=== PATIENT | female | born 1925 | race Caucasian/White ===

== ENCOUNTER 2017-04-02 13:58 | Emergency (ER) | payer MEDICARE, OTHER ==
[~2017-04-02] VITALS: Ht 154.9 cm; Wt 80.8 kg
[~2017-04-02 13:58] MED LIST: ASPI81TA50 PO; ATOR40TA78 PO; BISO5TAB11 PO; CEFD300C37 PO; CHOL500014 PO; CINA30TA PO; DOXY100T PO; FLUT1DIS3 INH; FURO40TA6 PO; GABA100C8 PO; GLIM4TAB PO; GLIM4TAB2 PO; HYDR-3138 PO; INSU100I28 SQ-INSULIN; INSU100V13 SC; INSU300I SQ; IPRA3AMP NPPB; LEVO750T26 PO; LINA5TAB PO; METH5TAB6 PO; OMEP-110 PO; POTA10TA PO; PRED5TAB PO; SPIR25TA3 PO; TIOT18CA INH; TRIA0.25 PO
[2017-04-02] MEDS ORDERED: SODIUM CHLORIDE FLUSH 10ML SYR IVF ONE (14:30)
[2017-04-02 15:02] LABS: BLOOD UREA NITROGEN 25 mg/dL (7-18)
[2017-04-02 15:07] LABS: ASPARTATE AMINO TRANSFERASE 7 U/L (15-37)
[2017-04-02] MEDS ORDERED: CEFTRIAXONE PMX 1GM/50ML 50 ML ONE (15:29)
[2017-04-02 15:56] VITALS: BP 143/73
== END 2017-04-02 17:36 | disposition home or self-care (01) ==
LOC: ED 17:10
DX: M25.562 Pain in left knee (principal); M71.21 Synovial cyst of popliteal space [Baker], right knee; I11.0 Hypertensive heart disease with heart failure; I50.1 Left ventricular failure, unspecified; E11.9 Type 2 diabetes mellitus without complications; J44.9 Chronic obstructive pulmonary disease, unspecified; Z88.1 Allergy status to other antibiotic agents; Z88.8 Allergy status to other drugs, medicaments and biological substances
CPT/HCPCS: 36415; 71010; 80053; 83880; 85025; 93005; 99285